=== PATIENT | female | born 1995 | race Caucasian/White ===

== ENCOUNTER → 2020-12-07 | Outpatient (CLI) | payer OTHER ==
[~2020-12-07] MED LIST: CHOL100013 PO; [UNRECOGNIZED DRUG - OTHER]
== END ==
LOC: LAB 10:58
PROVIDERS: ATTEND Obstetrics & Gynecology
DX: Z34.92 Encounter for supervision of normal pregnancy, unspecified, second trimester (principal); Z3A.00 Weeks of gestation of pregnancy not specified
CPT/HCPCS: 36415; 82947; 82950

== ENCOUNTER 2021-01-08 06:23 | Inpatient (IN) | payer OTHER ==
[2021-01-08] VITALS (7 sets, daily range): BP systolic 118–146; BP diastolic 69–87
[~2021-01-08] VITALS: Ht 167.6 cm; Wt 100.7 kg
[2021-01-08] MEDS ORDERED: IV RINGERS,LACTATED 1000ML 1,000 ML IV PRN (06:30)
[2021-01-08] MEDS ORDERED: ACETAMINOPHEN 325 MG TABLET. PO PRN (06:30)
[2021-01-08] MEDS ORDERED: OXYTOCIN 30 UNIT/500 ML PREMIX 500 ML IV ONE (06:42)
[2021-01-08] MEDS ORDERED: LIDOCAINE 1% PF 30 ML VIAL. INJ PRN (07:30)
[2021-01-08] MEDS ORDERED: 0.9 % SODIUM CHLORIDE 10 ML DISP.SYRIN. IV PRN (07:30)
[2021-01-08] MEDS ORDERED: OXYTOCIN 30 UNIT/500 ML PREMIX 500 ML IV PRN ×2 (07:30)
[2021-01-08] MEDS ORDERED: IV RINGERS,LACTATED 1000ML 1,000 ML IV SCH (07:30)
[2021-01-08] MEDS ORDERED: TERBUTALINE 1 MG/ML VIAL. SQ PRN (07:30)
[2021-01-08] MEDS ORDERED: BUTORPHANOL 2 MG/ML VIAL. IV ONE (07:30)
[2021-01-08] MEDS ORDERED: PHENYLEPH/MINERAL OIL/PETROLAT RECTAL OINTMENT TUBE. RC PRN (07:45)
[2021-01-08] MEDS ORDERED: MMR per PROTOCOL. MC PRN (07:45)
[2021-01-08] MEDS ORDERED: TDaP (Adacel) per PROTOCOL. MC PRN (07:45)
[2021-01-08] MEDS ORDERED: ZOLPIDEM 5 MG TABLET. PO PRN (07:45)
[2021-01-08] MEDS ORDERED: diphenhydrAMINE HCL 25 MG CAPSULE PO PRN (07:45)
[2021-01-08] MEDS ORDERED: SIMETHICONE 80 MG TAB.CHEW PO PRN (07:45)
[2021-01-08] MEDS ORDERED: MAGNESIUM HYDROXIDE 2,400 MG/30 ML ORAL.SUSP. PO PRN (07:45)
[2021-01-08] MEDS ORDERED: MAG HYDROX/ALUMINUM HYD/SIMETH 30 ML ORAL.SUSP PO PRN (07:45)
--- NOTE | 2021-01-08 07:54 | PDOC ---
GENERAL General: 25yrs old lady came in with Labor. Patient admitted for Vaginal Delivery. VITAL SIGNS Vital Signs/I&O: Vital Signs Date Time Temp Pulse Resp B/P (MAP) Pulse Ox O2 Delivery O2 Flow Rate FiO2 01/08/21 07:40 18 ALLERGIES Allergies: Allergies Coded Allergies Type Severity Reaction Last Updated Verified No Known Drug Allergies 05/05/15 No MEDS Medications: Current Medications Medications (Trade) Dose Ordered Sig/Robbie Route PRN Reason Start Time Stop Time Status Last Admin Dose Admin Ringer's Solution 1,000 ml @ 125 mls/hr Q8H IV 01/08/21 07:30 01/08/21 07:41 Lidocaine HCl (Xylocaine 1% Pf 30ml Vial) 30 ml 1X PRN PRN INJ SEE COMMENTS 01/08/21 07:30 01/10/21 07:29 01/08/21 07:38 Oxytocin 500 ml @ 0 mls/hr CONT PRN PRN IV Post delivery bleeding 01/08/21 07:30 01/08/21 07:42 Butorphanol Tartrate (Stadol) 2 mg 1X ONCE IV 01/08/21 07:30 01/08/21 07:31 DC 01/08/21 07:40 ASSESSMENT & PLAN A&P Vital signs stable. Pelvic exam shows 9cms dilated. Vertex presenting. Patient had rapid vaginal delivery and alive Female baby delivered with lot of Meconium stained Fluid. Patient had Second degree Vaginal tear sutured with 2 O Chromic sutures. EBL 200cc. Justifications for Admission Other Justification FARNAZ SHELDON MD Jan 08, 2021 07:54
[2021-01-08 08:28] LABS: BASO # 0.1 x10^3/uL (0.0-0.2); BASO % 1 % (0-3); EOS % 0 % (0-3); HEMATOCRIT 38.2 % (36.0-47.0); LYMPH % 4 % (24-48); MEAN CORPUSCULAR HEMOGLOBIN 30 pg (25-35); MEAN CORPUSCULAR HGB CONC 34 g/dL (31-37); MEAN CORPUSCULAR VOLUME 89 fL (79-100); MONO # 0.8 x10^3/uL (0.0-1.1); MONO % 4 % (0-9); NEUT % 92 % (31-73); PLATELET COUNT 273 x10^3/uL (140-400); RED BLOOD COUNT 4.31 x10^6/uL (3.50-5.40); RED CELL DISTRIBUTION WIDTH 14.1 % (11.5-14.5); WHITE BLOOD COUNT 22.9 x10^3/uL (4.0-11.0)
[2021-01-08] MEDS ORDERED: BENZOCAINE 20% TOPICAL AEROSOL SPRAY 57GM CAN. TP PRN (09:45)
[2021-01-08] MEDS: IBUPROFEN 400 MG TABLET. PO PRN (09:46)
[2021-01-08 10:13] LABS: % BANDS 14 % (0-9); % LYMPHS 3 % (24-48); % MONOS 2 % (0-10); % SEGS 81 % (35-66); PLT ESTIMATE ADEQUATE (ADEQUATE)
--- NOTE | 2021-01-08 14:36 | LDN ---
DATE OF DELIVERY: 01/08/2021 DELIVERY NOTE This patient is a 25-year-old white female who is a 1, para 0, came into the hospital with a history of having contractions and at the time of admission to the hospital, cervix was dilated to 9 cm. The patient in active labor and she did have a rapid progress of labor, had a spontaneous vaginal delivery of alive female , weighing 7 pounds 4 ounces, delivered with a lot of meconium stained fluid and baby's Apgars were 4, 8 and 8 and was given to the meat team lead for further care and treatment. Cord was clamped and cut. Placenta removed spontaneously. No hemorrhage noted. Visualization of the perineum revealed a second-degree laceration on the right side of the vaginal wall area and this was sutured with 2-0 chromic catgut sutures under local block as well as patient was given Stadol 1 mg IV because of a lot of discomfort while suturing the perineum. Estimated blood loss about 200 mL. Mother tolerated the delivery well. No complications and the baby is referred to meat team lead for further care and treatment. [facility]: Js TID: [id number]
--- NOTE | 2021-01-08 14:39 | HP ---
ADMIT DATE: 01/08/2021 SUBJECTIVE: The patient is a 25-year-old white female who is a primigravida, EDC 12/30/2020, had a care without any problems. The patient came into the hospital with a history of having contractions and cervix dilated to about 9 cm. The patient in active labor. PHYSICAL EXAMINATION: VITAL SIGNS: Being stable. HEENT: Within normal limits. LUNGS: Clear. HEART: Sounds regular sinus rhythm. ABDOMEN: Soft, term size uterus. heart tones are 140 per minute. Vertex presenting. PELVIC: Exam showed cervix 9 cm dilated, membranes intact and the patient in active labor. DIAGNOSIS: Primigravida in active labor. PLAN: Vaginal delivery. [facility] DR: Js TID: [id number]
[2021-01-09] VITALS: BP 132/73
[2021-01-09 05:00] VITALS: BP 118/69
[2021-01-09] MEDS: DOCUSATE SODIUM 100 MG CAPSULE. PO PRN (07:52)
[2021-01-09] MEDS: IBUPROFEN 400 MG TABLET. PO PRN (07:52)
[2021-01-09] MEDS ORDERED: FERROUS SULFATE 325 MG TABLET. PO SCH (08:00)
--- NOTE | 2021-01-09 10:35 | PDOC ---
GENERAL General: Patient Breast feeding the baby No complaints. VITAL SIGNS Vital Signs/I&O: Vital Signs Date Time Temp Pulse Resp B/P (MAP) Pulse Ox O2 Delivery O2 Flow Rate FiO2 01/09/21 05:00 98.5 79 18 118/69 (85) Room Air 98.5 ALLERGIES Allergies: Allergies Coded Allergies Type Severity Reaction Last Updated Verified No Known Drug Allergies 05/05/15 No LAB Lab: Laboratory Tests Test 01/09/21 07:25 Hematocrit 35.3 % (36.0-47.0) L Laboratory Tests 01/09/21 07:25 ASSESSMENT & PLAN A&P Vital signs stable Abdomen soft. Uterus firm. Lochia normal. Plan Dismissal in am. tomorrow. Justifications for Admission Other Justification FARNAZ SHELDON MD Jan 09, 2021 10:35
[2021-01-09 14:00] VITALS: BP 142/67
--- NOTE | 2021-01-09 16:54 | NUR ---
SS following up with referral regarding " urine drug screen positive for THC." SS reviewed mother and chart and discussed with RN, Sarina. Infant Meconium positive for THC as well. No UDS was completed on mother. SS was informed that mother is being appropriate with . [facility] hotline report made for positive THC. Intake#[id number]. RN notified.
[2021-01-09 18:54] VITALS: BP 137/84
[2021-01-09 20:00] VITALS: BP 133/74
[2021-01-10 00:10] VITALS: BP 136/74
[2021-01-10 04:00] VITALS: BP 126/72
[2021-01-10] MEDS: DOCUSATE SODIUM 100 MG CAPSULE. PO PRN (08:55)
[2021-01-10] MEDS: IBUPROFEN 400 MG TABLET. PO PRN (08:56)
--- NOTE | 2021-01-10 09:35 | PDOC ---
GENERAL General: Patient doing ok. No Problems. VITAL SIGNS Vital Signs/I&O: Vital Signs Date Time Temp Pulse Resp B/P (MAP) Pulse Ox O2 Delivery O2 Flow Rate FiO2 01/10/21 04:00 98.7 78 18 126/72 (90) 98 98.7 01/09/21 18:54 Room Air ALLERGIES Allergies: Allergies Coded Allergies Type Severity Reaction Last Updated Verified No Known Drug Allergies 05/05/15 No ASSESSMENT & PLAN A&P Patient going Home today. Will see her in Office in 6 weeks. Justifications for Admission Other Justification FARNAZ SHELDON MD Jan 10, 2021 09:35
--- NOTE | 2021-01-10 10:30 | NUR ---
SS following up. [facility] hotline report made on 01/09/2021 for positive THC. Intake#[id number]. SS met with mother this morning. Mother reported having good family support and good transportation. Mother reported having all supplies needed for infant to include car seat. Mother reported that infant will see Dr. Edmond Giron. Mother plans to breast feed . Infant RN notified. No other concerns noted at this time. SS will continue to follow as needed.
[2021-01-10 14:50] VITALS: BP 118/81
--- NOTE | 2021-01-10 15:15 | NUR ---
Discharge instructions given to patient. Pt verbalized understanding. Pt discharged home with significant other and .
--- NOTE | 2021-01-14 11:25 | PATHOLOGY ---
[facility] Accession Number: [id number] . 01 Material submitted: . placenta - PLACENTA . 01 Clinical history: . TERM , MECONIUM STAINED FLUID VAGINAL DELIVERY SIGMA RHO SINL AT 0647 APGARS (SEE REQ UNDER HISTORY) . 02 Diagnosis: Placenta, vaginal delivery: - Mature davila placenta weighing 493 grams (at approximately the 60th percentile for a 37 week gestation). - Focally thin (0.7 cm in diameter) three-vessel umbilical cord with paracentral insertion into the chorionic plate. - Meconium staining of membranes. - Focal acute and chronic deciduitis. - Recent retromembranous hematoma. - Recent retroplacental hematoma. - Increased nucleated red blood cells within vascular spaces. . (MLK:sugar; 01/11/2021) [facility] 01/14/2021 1031 Local . 02 Electronically signed: . John Andrea MD, Pathologist NPI- [id number] . 01 Gross description: . Labeled: Placenta Specimen received: An intact davila discoid placenta with attached and detached umbilical cord Dimensions: 19.0 x 14.5 x 2.0 cm membranes appearance: Dull gamez-cordero to green with meconium staining membrane rupture: 2.0 cm from placental disc membrane insertion: Normal Umbilical cord: Attached cord 27.5 cm in length by 0.7-1.0 cm in diameter with 3 twists, and detached cord measures 13.5 cm in length by 0.7-1.0 cm in diameter with 4 twists Umbilical cord insertion: 0.7, 7.5 cm from the closest placental margin Number of umbilical vessels: Trivascular Umbilical cord appearance: White to gamez green (meconium-stained) Trimmed placental weight: 493 g surface: Gamez-cordero to green (meconium) with prominent vessels and little to no subchorionic plaque Maternal surface: Intact Coty[place]ons with 30% loose and adherent clotted blood Abnormalities: Sectioning reveals beefy-red parenchyma with no grossly apparent lesions. ([facility]; 01/09/2021) [employer] sections are submitted as follows: A1 proximal and distal umbilical cord A2 membranes, rolled Maternal surface A3 senior patient account representative peripheral placenta A4 senior patient account representative central placenta A5 additional maternal surface A6 surface adjacent to umbilical cord insertion site ANTWAN/[facility] 01/14/2021 1031 Local . 02 Pathologist provided ICD-10: O43.893, O77.0, Z37.0, Z37.0 . 02 CPT . 541005 Specimen Comment: A courtesy copy of this report has been sent to [phone] Performed at: 01 [facility] [address] [place] [id number] MD Isaiah Hung MD Phone: [phone] Performed at: [address] [id number] MD Agustin Huitron MD Phone: [phone]
== END 2021-01-10 15:15 | disposition home or self-care (01) | DRG 807 ==
LOC: 3 SO LND 06:23 → OBSVTOIN 07:22 → 3 SO LND 01-09 15:42
PROVIDERS: ADMIT Obstetrics & Gynecology; ATTEND Obstetrics & Gynecology
PROC: 10E0XZZ Delivery of Products of Conception, External Approach (ICD-10-PCS; principal; 2021-01-08)
PROC: 0KQM0ZZ Repair Perineum Muscle, Open Approach (ICD-10-PCS; 2021-01-08)
DX: O77.0 Labor and delivery complicated by meconium in amniotic fluid (principal); Z37.0 Single live birth; Z3A.38 38 weeks gestation of pregnancy; O70.1 Second degree perineal laceration during delivery; Z20.822 Contact with and (suspected) exposure to COVID-19
CPT/HCPCS: 36415; 85007; 85014; 85025; 86850; 86900; 86901; 87426; 88307; G0379; J0595; J2590; J3490; J7120; U0003; U0005; G0378